=== PATIENT | female | born 1995 | race Caucasian/White ===

== ENCOUNTER 2017-05-12 20:18 | Emergency (ER) | payer OTHER ==
[~2017-05-12] VITALS: Ht 170.2 cm; Wt 86.6 kg
[~2017-05-12 20:18] MED LIST: BENADRYL25 MG PO; CEPHALEXIN500 MG PO; CRUTCH1 EACH; IBUPROFEN600 MG PO; NORCO 5-325 TA1 EACH PO; PANTOPRAZOLE SO40 MG PO; PROVENTIL HFA6.7 GM INH; SUMATRIPTAN SUC50 MG PO; XULANE PATCH1 EACH TD
== END 2017-05-12 21:20 | disposition home or self-care (01) ==
LOC: ED 20:18
DX: O99.513 Diseases of the respiratory system complicating pregnancy, third trimester (principal); J11.1 Influenza due to unidentified influenza virus with other respiratory manifestations; G43.909 Migraine, unspecified, not intractable, without status migrainosus; Z88.8 Allergy status to other drugs, medicaments and biological substances; Z3A.32 32 weeks gestation of pregnancy
CPT/HCPCS: 99282

== ENCOUNTER 2017-07-06 18:49 | Inpatient (IN) | payer OTHER ==
[~2017-07-06] VITALS: Ht 170.2 cm; Wt 94.3 kg
--- NOTE | 2017-07-06 21:39 | PR ---
[facility] [address] [facility] [place], [place] [address] Signed Progress Notes IP Datetime Report Generated by CPN: 07/06/2017 21:39 PROGRESS NOTES: [id number] Impression: Normal progression of labor Procedures: Artificial ROM Plan: Continue present management; Anticipate Vaginal Delivery VITAL SIGNS: [id number] EXAM: [id number] Dilatation: 9.0 Effacement: 90 Station: 0 Uterine Contractions: every 1-2 minutes MEMBRANES: [id number] Membrane Status: Ruptured Amniotic Fluid Color: Clear Comments: Comfortable now with Intrathecal. Continue close monitoring, expect delivery soon. Fetus A: [id number] FHR Baseline: 115 Variability: Moderate 6-25bpm Accelerations: 15X15 Presentation: Vertex Fetus B: [id number] Signing Physician: Rachael Ramires MD Copies: ~ *Electronically Signed* 07/06/17 2139 RACHAEL RAMIRES MD PATIENT NAME: KEYANNA GODINEZ PROGRESS NOTE DATE OF : 97 PHYSICIAN: RACHAEL RAMIRES MD RPT #: [id number] REPORT IS CONFIDENTIAL AND NOT TO BE RELEASED WITHOUT AUTHORIZATION
[2017-07-07] MEDS ORDERED: PRENATABS RX T1 EACH PO (05:53)
[2017-07-07] MEDS ORDERED: IRON160 MG PO (05:53)
--- NOTE | 2017-07-08 10:37 | PR ---
[facility] [address] [facility] [place] [address] Signed PP Progress Notes Datetime Report Generated by CPN: 07/08/2017 10:37 SUBJECTIVE: [id number] Pain: Within normal limits Nausea/Vomiting: Denies Flatus: Yes Vital Signs: [id number] Vital Signs: Reviewed; Within Normal Limits Notable Details: PP Hgb/Hct = 9.6/27.5 EXAM: [id number] Abdomen/Uterus: Normal Lochia: Normal Extremities: Normal IMPRESSION/PLAN/PROCEDURES: [id number] Impression: Normal progression Plan: Discharge Procedures: None Progress Notes: Doing well, ready to go home. Signing Physician: Rachael Ramires MD Copies: ~ *Electronically Signed* 07/08/17 RACHAEL DE LA CRUZ MD PATIENT NAME: KEYANNA GODINEZ PROGRESS NOTE DATE OF : 97 PHYSICIAN: RACHAEL RAMIRES MD RPT #: [id number] REPORT IS CONFIDENTIAL AND NOT TO BE RELEASED WITHOUT AUTHORIZATION
== END 2017-07-08 12:30 | disposition home or self-care (01) | DRG 775 ==
LOC: FBCO 18:49 → FBC 19:10 → MS 07-07 20:43 → FBC 07-07 23:25
PROVIDERS: ADMIT General Practice
PROC: 10E0XZZ Delivery of Products of Conception, External Approach (ICD-10-PCS; principal; 2017-07-06)
PROC: 10907ZC Drainage of Amniotic Fluid, Therapeutic from Products of Conception, Via Natural or Artificial Opening (ICD-10-PCS; 2017-07-06)
PROC: 00HU33Z Insertion of Infusion Device into Spinal Canal, Percutaneous Approach (ICD-10-PCS; 2017-07-06)
PROC: 3E0R3BZ Introduction of Anesthetic Agent into Spinal Canal, Percutaneous Approach (ICD-10-PCS; 2017-07-06)
DX: O48.0 Post-term pregnancy (principal); Z3A.40 40 weeks gestation of pregnancy; Z37.0 Single live birth; Z86.59 Personal history of other mental and behavioral disorders; Z86.19 Personal history of other infectious and parasitic diseases; Z88.8 Allergy status to other drugs, medicaments and biological substances
CPT/HCPCS: 01960; 36415; 85027; J2590; J7120

== ENCOUNTER 2019-01-03 14:03 | Inpatient (IN) | payer OTHER ==
[~2019-01-03] VITALS: Ht 170.2 cm; Wt 95.0 kg
[~2019-01-03 14:03] MED LIST changes: +IBUPROFEN200 M1 PO; +IRON160 MG PO; +PRENATABS RX T1 EACH PO
--- NOTE | 2019-01-04 08:11 | PR ---
[facility] [address] [facility] [place], [place] [address] Signed Progress Notes IP Datetime Report Generated by CPN: 01/04/2019 08:11 PROGRESS NOTES: [id number] Impression: Normal progression of labor Procedures: Artificial ROM Plan: Continue present management; Anticipate Vaginal Delivery VITAL SIGNS: [id number] Vital Signs: Reviewed; Within Normal Limits EXAM: [id number] Dilatation: 4.0 Effacement: 75 Station: -2 Uterine Contractions: every 2-3 minutes MEMBRANES: [id number] Membrane Status: Ruptured Amniotic Fluid Color: Clear ROM Note: Easy AROM with moderate clear fluid. Head well-applied to cervix. Comments: Doing well, without complalint, planning Epidural later. Fetus A: [id number] FHR Baseline: 130 Variability: Moderate 6-25bpm Accelerations: 15X15 Presentation: Vertex Fetus B: [id number] Signing Physician: Rachael Ramiers MD Copies: ~ *Electronically Signed* 01/04/19 0811 RACHAEL RAMIRES MD PATIENT NAME: KEYANNA GODINEZ PROGRESS NOTE DATE OF : 97 PHYSICIAN: RACHAEL RAMIRES MD RPT #: [id number] REPORT IS CONFIDENTIAL AND NOT TO BE RELEASED WITHOUT AUTHORIZATION
--- NOTE | 2019-01-05 12:59 | PR ---
[facility] [address] [facility] [place] [address] Signed PP Progress Notes Datetime Report Generated by CPN: 01/05/2019 12:59 SUBJECTIVE: [id number] Pain: Within normal limits Nausea/Vomiting: Denies Vital Signs: [id number] Vital Signs: Reviewed; Within Normal Limits Notable Details: PP Hgb/Hct = 9.7/28.8 EXAM: [id number] Abdomen/Uterus: Normal Lochia: Normal Extremities: Normal IMPRESSION/PLAN/PROCEDURES: [id number] Impression: Normal progression Plan: Continue present management Procedures: None Progress Notes: doing well, without complaint, anemia about same as before delivery. Signing Physician: Rachael Ramires MD Copies: ~ *Electronically Signed* 01/05/19 1259 RACHAEL RAMIRES MD PATIENT NAME: KEYANNA GODINEZ PROGRESS NOTE DATE OF : 97 PHYSICIAN: RACHAEL RAMIRES MD RPT #: [id number] REPORT IS CONFIDENTIAL AND NOT TO BE RELEASED WITHOUT AUTHORIZATION
--- NOTE | 2019-01-06 11:47 | PR ---
[facility] [address] [facility] [place] [address] Signed PP Progress Notes Datetime Report Generated by CPN: 01/06/2019 11:46 SUBJECTIVE: [id number] Pain: Within normal limits Nausea/Vomiting: Denies Vital Signs: [id number] Vital Signs: Reviewed; Within Normal Limits Notable Details: PP Hgb/Hct = 9.7/28.8 EXAM: [id number] Abdomen/Uterus: Normal Lochia: Normal Extremities: Normal IMPRESSION/PLAN/PROCEDURES: [id number] Impression: Normal progression Plan: Discharge Procedures: None Progress Notes: Doing well, without complaint, minimal pain, ready to go home, but baby will be staying. Signing Physician: Rachael Ramires MD Copies: ~ *Electronically Signed* 01/06/19 1146 RACHAEL RAMIRES MD PATIENT NAME: KEYANNA GODINEZ PROGRESS NOTE DATE OF : 97 PHYSICIAN: RACHAEL RAMIRES MD RPT #: [id number] REPORT IS CONFIDENTIAL AND NOT TO BE RELEASED WITHOUT AUTHORIZATION
== END 2019-01-06 16:00 | disposition home or self-care (01) | DRG 806 ==
LOC: FBCO 14:03 → EDSTATUS 15:00 → FBC 01-04 00:02
PROVIDERS: ADMIT General Practice
PROC: 10E0XZZ Delivery of Products of Conception, External Approach (ICD-10-PCS; principal; 2019-01-04)
PROC: 0HQ9XZZ Repair Perineum Skin, External Approach (ICD-10-PCS; 2019-01-04)
PROC: 3E0P7VZ Introduction of Hormone into Female Reproductive, Via Natural or Artificial Opening (ICD-10-PCS; 2019-01-04)
PROC: 10907ZC Drainage of Amniotic Fluid, Therapeutic from Products of Conception, Via Natural or Artificial Opening (ICD-10-PCS; 2019-01-04)
PROC: 00HU33Z Insertion of Infusion Device into Spinal Canal, Percutaneous Approach (ICD-10-PCS; 2019-01-04)
PROC: 3E0R3BZ Introduction of Anesthetic Agent into Spinal Canal, Percutaneous Approach (ICD-10-PCS; 2019-01-04)
DX: O36.5930 Maternal care for other known or suspected poor fetal growth, third trimester, not applicable or unspecified (principal); O99.324 Drug use complicating childbirth; Z37.0 Single live birth; Z3A.40 40 weeks gestation of pregnancy; F12.90 Cannabis use, unspecified, uncomplicated; O69.81X0 Labor and delivery complicated by cord around neck, without compression, not applicable or unspecified; O70.0 First degree perineal laceration during delivery; O99.02 Anemia complicating childbirth; D64.9 Anemia, unspecified; Z88.8 Allergy status to other drugs, medicaments and biological substances; Z86.19 Personal history of other infectious and parasitic diseases
CPT/HCPCS: 36415; 85027; J2590; J2795; J7120